=== PATIENT | male | born 1960 | race Caucasian/White ===

== ENCOUNTER 2021-12-10 09:30 | Observation (INO) | payer OTHER, SELFPAY ==
[2021-12-10] VITALS (14 sets, daily range): BP systolic 147–181; BP diastolic 91–103; PULSE 73–88; RESP 16; TEMP 37.1–37.6; O2SAT 92–97; BMI 30.4
--- NOTE | 2021-12-10 10:17 | HP.PCM.HOS_ITS ---
HPI - General General Date of Admission: 12/10/21 Date of Service: 12/10/21 Chief Complaint: transfer from outside hospital for urology evaluation HPI Narrative BETTY LOREDO, is a 60 M with a PMH as outlined who was admitted as a transfer from an outside hospital for urology evaluation. He had presented to [facility] with a complaint of nausea, vomiting and right flank pain. Symptoms started on the night of admission at the outside hospital. He denied any fever or chills, or burning with urination. Patient is visiting from [place], and didnt have any significant health issues. Review of systems was otherwise negative. At the outside hospital, labs wre significant for wbc of 15k, Cr of 1.44 and urinalysis showed evidence of UTI. There were no baseline labs available. CT of the abdomen and pelvis showed a 3mm stone in hte proximal right ureter with mild hydronephrosis. THis was discussed with Urology and patient was transferred to [facility] for evaluation by urology and for IV antibiotics and to be managed for hydronephrosis and infected right kidney stone. [facility] Medical History no medical history Home Medications ciprofloxacin HCl 500 mg tablet (Cipro) 500 mg PO BID #6 tabs 12/10/21 [Rx Last Taken Unknown] oxycodone-acetaminophen 5 mg-325 mg tablet 1 tab PO Q4H PRN pain 7 days #14 tabs 12/10/21 [Rx Last Taken Unknown] oxycodone-acetaminophen 5 mg-325 mg tablet 1 tab PO Q6H PRN pain 7 days #14 tabs 12/10/21 [Rx Last Taken Unknown] oxycodone-acetaminophen 5 mg-325 mg tablet 1 tab PO Q6H PRN pain 7 days #14 tabs 12/10/21 [Rx Last Taken Unknown] oxycodone-acetaminophen 5 mg-325 mg tablet 1 tab PO Q6H PRN pain 7 days #14 tabs 12/10/21 [Rx Last Taken Unknown] oxycodone-acetaminophen 5 mg-325 mg tablet 1 tab PO Q6H PRN pain 7 days #14 tabs 12/10/21 [Rx Last Taken Unknown] phenazopyridine 100 mg tablet (Pyridium) 100 mg PO TID PRN pain 7 days #10 tabs 12/10/21 [Rx Last Taken Unknown] Allergy/AdvReac Type Severity Reaction Status Date / Time No Known Allergies Allergy Verified 12/10/21 10:33 Family History Father Colon cancer Surgical History History of hernia surgery Social History Smoking Status: Never smoker ROS Constitutional Constitutional: Reports chills, fatigue, malaise and weakness; Denies anorexia or fever(s) Eyes Eyes: Denies change in vision ENT HEENT: Denies dysphagia, headache(s) or sore throat Cardiovascular Cardiovascular: Denies chest pain, dyspnea on exertion, edema or rapid heart rate Respiratory/Chest Respiratory/Chest: Denies cough, dyspnea, productive cough, shortness of breath at rest or shortness of breath with exertion Gastrointestinal Gastrointestinal: Reports abdominal pain, nausea and vomiting; Denies constipation or diarrhea Genitourinary Genitourinary: Reports burning urination and dysuria; Denies hematuria, nocturia, urinary frequency or urinary urgency Musculoskeletal Musculoskeletal: Denies arthralgias Neurologic Neurologic: Denies confusion, dizziness, focal weakness or headache(s) Psychiatric Psychiatric: Denies anxiety Vital Signs Vital Signs Vital Signs: 12/10/21 09:57 Temperature 98.7 F Temperature Source Oral Pulse Rate 86 Respiratory Rate 16 Blood Pressure 153/96 H Blood Pressure Mean 115 Blood Pressure Source Monitor Blood Pressure Position Semi-Fowlers Blood Pressure Location Right Arm Pulse Ox 94 Oxygen Delivery Method Room Air Weight Weight: 218 lb 4.122 oz Body Mass Index (BMI) 30.4 Physical Exam Const alert, oriented x3 and no apparent distress General Appearance: cooperative HEENT normocephalic, head/scalp atraumatic, hearing grossly normal bilaterally and moist oral mucous membranes Mouth: oral and palatal mucosa normal Eyes PERRL, EOMs intact bilaterally and conjunctivae normal Neck no lymphadenopathy and supple Resp normal respiratory effort, no retractions, no use of accessory muscles and clear to auscultation bilaterally Cardio regular rate, regular rhythm, S1 normal heart sound, S2 normal heart sound and no murmurs GI normal to inspection, nondistended, normoactive bowel sounds, soft to palpation, non-tender and non-distended GI Narrative: no right CVA tenderness Extremity normal to inspection, full ROM and no clubbing, cyanosis or edema Neuro oriented x3, CN's II-XII intact bilaterally, moves all extremities and no focal motor deficits Sensorium / Orientation: awake and alert Motor Exam: strength 5/5 throughout Psych affect normal Assessment & Plan Assessment/Plan (1) Pyelonephritis: (2) Hydronephrosis: (3) Kidney stone: PLAN: Plan # infected right kidney stone * admit to PCU * CT abdomen done at outside hospital showed 3mm stone in proximal right ureter * start oN IV zosyn * get blood cultures and urine cultures * hydrate gently with IVF * IV morphine, po oxycodone and pO tylenol prn for pain * discussed with urology and plan is for stent placement * #RIght hydronephrosis due to right kidney stone * urology consulted as above * will give flomax and hydrate with IVF * DVT prophylaxis: lovenox 4:24pm Patient had ureteral stent placement by urology. Per urology, paitent was ok to be discharged home. Patient also requested for discharge home as he wanted to drive back to [place] the same day. Patient was discharged home on PO ciprofloxacin as well as PO percocet. He is to follow up with his PCP and urologist back in [place]. THis note serves as both an admission H&P and discharge summary. Charges/Coding Visit Charges OBSV E&M: 30073 Observ/hosp same date L3
--- NOTE | 2021-12-10 11:09 | PCM.CONS.U ---
Assessment & Plan Assessment/Plan (1) Kidney stone: PLAN: Right kidney stone (2) Hydronephrosis: PLAN: plan for cysto and right stent placement HPI Consult Data Date of Consult: 12/10/21 HPI Narrative HPI Narrative: BETTY LOREDO, is a 60 M with a PMH as outlined who was admitted as a transfer from an outside hospital for urology evaluation. He had presented to [facility] with a complaint of nausea, vomiting and right flank pain. He denied any fever or chills, or burning with urination. Review of systems was otherwise negative. At the outside hospital, labs wre significant for wbc of 15k, Cr of 1.44 and urinalysis showed evidence of UTI. There were no baseline labs available. CT of the abdomen and pelvis showed a 3mm stone in hte proximal right ureter with mild hydronephrosis. He was a transfer from outside hospital because they were concerned of sepsis from the elevated white blood count and urine that showed infection so he was admitted plan to place a stent today and then he will be discharged to home he lives in [place]. [facility] Medical History no medical history Allergy/AdvReac Type Severity Reaction Status Date / Time No Known Allergies Allergy Verified 12/10/21 10:33 Family History Father Colon cancer Surgical History History of hernia surgery Social History Smoking Status: Never smoker ROS Constitutional Constitutional: Denies chills, fever(s) or malaise Eyes Eyes: Denies blurry vision or change in vision ENT HEENT: Reports none Cardiovascular Cardiovascular: Denies chest pain or palpitations Respiratory/Chest Respiratory/Chest: Denies cough or shortness of breath with exertion Gastrointestinal Gastrointestinal: Denies abdominal pain, constipation or diarrhea Musculoskeletal Musculoskeletal: Denies back pain, joint stiffness or joint swelling Integumentary Integumentary: Denies dry skin, jaundice, lesions or rash Neurologic Neurologic: Denies confusion, syncope or weakness Psychiatric Psychiatric: Reports none; Denies anxiety or depression Endocrine Endocrinology: Denies excessive sweating, fatigue or flushing Hematologic/Lymphatic Hematologic/Lymphatic: Denies anemia, easy bleeding or easy bruising Physical Exam Const alert and oriented x3 General Appearance: cooperative HEENT normocephalic, head/scalp atraumatic, EAC's normal and TM's normal bilaterally Eyes PERRL and EOMs intact bilaterally Pupil: sluggish Neck no lymphadenopathy, supple and no JVD General: trachea midline Lymph Lymphatic: no lymphadenopathy noted, lymphedema and lymphadenopathy Resp normal respiratory effort, normal air movement and clear to auscultation bilaterally Cardio regular rate, regular rhythm and peripheral pulses 2+ throughout GI soft to palpation, non-tender and non-distended Extremity normal capillary refill and no clubbing, cyanosis or edema General Extremity: no tenderness to palpation of joints or extremities Skin no rashes or lesions noted General Skin Exam: turgor normal Lesions: no lesions Rashes: no rashes Neuro CN's II-XII intact bilaterally Speech: speech normal Motor Exam: strength 5/5 throughout; Negative for general weakness Psych thought process normal, cooperative and affect normal Appearance: appropriate Medical Records Data Attestation: I reviewed the patient's medical records Lab / Micro Data Attestation: I reviewed the patient's lab results. ABG Data Attestation: I personally reviewed and interpreted this ABG as follows:
[2021-12-10] MEDS: 0.9% Normal Saline 1,000 ML 150 ML IV (11:16)
--- NOTE | 2021-12-10 13:48 | DCINST_ITS ---
Discharge Instructions Diet Discharge Diet: No restrictions Activity Discharge Activity: Return to Normal Activity Dressing / Incision Call your doctor if you observe: Fever of 101 or Higher Follow Up Care Please Follow Up With: Bruce Gagnon MD When: as needed, get appt with local Urologist to treat stone and remove the stent. call my office [phone] with questions. Test Results: Test results from this visit will be discussed in further detail at your follow- up appointment, if applicable. Discharge Plan Admission Admit Date/Time: 12/10/21 09:30 Primary Reason for Your Visit: kidney stone Attending Provider: Nuvia Adam Consulting Providers: Tu Sierra ; Bruce Gagnon Discharge Orders/Prescriptions Prescriptions: New ciprofloxacin HCl [Cipro] 500 mg tablet 500 mg PO BID Qty: 6 0RF phenazopyridine [Pyridium] 100 mg tablet 100 mg PO TID PRN (Reason: pain) 7 Days Qty: 10 0RF oxycodone-acetaminophen 5-325 mg tablet 1 tab PO Q4H PRN (Reason: pain) 7 Days Qty: 14 0RF oxycodone-acetaminophen 5-325 mg tablet 1 tab PO Q6H PRN (Reason: pain) 7 Days Qty: 14 0RF oxycodone-acetaminophen 5-325 mg tablet 1 tab PO Q6H PRN (Reason: pain) 7 Days Qty: 14 0RF oxycodone-acetaminophen 5-325 mg tablet 1 tab PO Q6H PRN (Reason: pain) 7 Days Qty: 14 0RF oxycodone-acetaminophen 5-325 mg tablet 1 tab PO Q6H PRN (Reason: pain) 7 Days Qty: 14 0RF Disposition Disposition (needs filled in before D/C Order can be placed): Home, Self Care
--- NOTE | 2021-12-10 13:49 | OP.PCM_ITS ---
Report of Operation Date of Procedure: 12/10/21 Pre-Operative Diagnosis: Right obstructing kidney stone pyelonephritis Post-Operative Diagnosis: Same Surgery/Procedure Performed:: Cystoscopy right retrograde pyelogram and right stent placement Description of Surgical Findings:: Patient was taken back to the operating room after induction of general anesthesia, the patient was placed in dorsolithotomy position. The urethra and genitals were prepped and draped in usual sterile fashion. Using a 21 [place] rigid cystourethroscope the entire length of the urethra was normal then went into the bladder. Identified the trigone the left and right ureteral orifice. I then cannulated the RIGHT orifice and advanced a wire up into the kidney. I then backloaded a 5 [place] open ended catheter over the wire and injected contrast to delineate the anatomy. After the retrograde was performed I then used fluoroscopic images and guidance to advanced a wire up into the kidney and over the 0.038 glidewire I advanced a 6 [place] by 26 cm double pigtail stent. I then pulled the 0.038 Glidewire off and the stent coiled in the kidney bladder good position. The bladder was then drained. We confirmed the position of the stent by fluoroscopy. Patient anesthetic was reversed and was taken back to the PACU in good condition. Surgeon: Bruce Gagnon Type of Anesthesia: General Drains: none Admit VTE Documentation VTE Present on Admission: No VTE Mechan Device Prophylaxis: SCD's VTE Pharm Prophylaxis ordered?: No
--- NOTE | 2021-12-10 16:34 | CHAPLAIN ---
Type of Pastoral Visit ___ Initial Visit ___ Follow-up Visit ___ On-call Visit ___ General Patient Visit ___ Spiritual Assessment ___ Family Conference ___ Bereavement ___ Rapid Response ___ Code Blue _x__ Other (describe below) Pastoral Care Referral From ___ Patient _x__ Family ___ Nurse ___ Physician ___ Monumental Stonemason ___ Tongue Carrier ___ Other (describe below) Sacrament/Intervention _x__ Active listening ___ Anointing ___ Rastafari ___ Bereavement ___ Communion ___ Maggie exploration ___ ___ Life review _x__ Prayer ___ Reconciliation ___ Sacrament of Sick _x__ Supportive presence ___ Wedding ___ Other (describe below) Pastoral Comments 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
== END 2021-12-10 13:41 | disposition home or self-care (01) ==
PROVIDERS: Urology; Admitting Provider Family Medicine; Visit Provider Student in an Organized Health Care Education/Training Program
PROC: (CPT 52332; principal; 2021-12-10 13:50)
DX: N13.2 Hydronephrosis with renal and ureteral calculous obstruction (principal); N16 Renal tubulo-interstitial disorders in diseases classified elsewhere
CPT/HCPCS: 52332; 00910; 36415; 76000; 87040; 99218; J7030; C1769; C2617; G0378; G0379; J2405